=== PATIENT | female | born 2000 | race Caucasian/White ===

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

== ENCOUNTER → 2022-10-03 | Outpatient (CLI) | payer BC ==
[2022-10-03 12:31] LABS: Basophils # (auto) 0 10 ^3/uL (0-0.2); Basophils % (auto) 0.6 % (0.0-2.0); Eosinophils # (auto) 0.1 10 ^3/uL (0-0.8); Eosinophils % (auto) 1.5 % (0.0-7.0); Hematocrit 42.5 % (36.0-46.0); Hemoglobin 14.3 g/dL (12.2-16.2); Mean Corpuscular Hemoglobin 29.4 pg (28.0-32.0); Mean Corpuscular Hgb Conc. 33.8 g/dL (32.0-36.0); Monocytes # (auto) 0.3 10 ^3/uL (0-1.3); Monocytes % (auto) 7.2 % (0.0-12.0); Neutrophils # (auto) 2.3 10 ^3/uL (1.6-8.6); Neutrophils % (auto) 48.7 % (37.0-80.0); Nucleated Red Blood Cells % 0.1 %; Red Blood Cells 4.88 10^6/uL (4.0-5.20); Red Cell Distribution Width 13.5 % (11.8-14.3); White Blood Cell 4.7 10^3/uL (4.4-10.8)
[2022-10-03 13:09] LABS: Potassium 3.2 mmol/L (3.5-5.1)
[2022-10-03 13:20] LABS: Albumin 3.9 g/dL (3.4-5.0); Bilirubin, Total 0.7 mg/dL (0.2-1.0); Calcium 9.1 mg/dL (8.5-10.1); Total Protein 7.5 g/dL (6.4-8.2)
== END | disposition home or self-care (01) ==
LOC: LAB 11:55
PROVIDERS: ATTEND Nurse Practitioner Family
DX: N94.6 Dysmenorrhea, unspecified (principal)
CPT/HCPCS: 36415; 80053; 84439; 84443; 85025

== ENCOUNTER → 2022-10-09 | Outpatient (CLI) | payer BC ==
[2022-10-09 11:25] LABS: Potassium 3.9 mmol/L (3.5-5.1)
[2022-10-09 11:30] LABS: Calcium 9.5 mg/dL (8.5-10.1)
== END | disposition home or self-care (01) ==
LOC: LAB 10:28
PROVIDERS: ATTEND Nurse Practitioner Family
DX: E87.6 Hypokalemia (principal)
CPT/HCPCS: 36415; 80048

== ENCOUNTER → 2024-01-25 | Outpatient (CLI) | payer BC ==
[2024-01-25 08:38] LABS: LDL Cholesterol 72 mg/dL (< 100); Triglycerides 172 mg/dL (< 150)
[2024-01-25 08:40] LABS: Cholesterol 152 mg/dL (< 200); HDL Cholesterol 55 mg/dL (40-59)
== END | disposition home or self-care (01) ==
LOC: LAB 07:13
PROVIDERS: ATTEND Nurse Practitioner Family
DX: E78.5 Hyperlipidemia, unspecified (principal)
CPT/HCPCS: 36415; 80061

== ENCOUNTER → 2024-02-14 | Outpatient (CLI) | payer BC | END | disposition home or self-care (01) | LOC: LAB 02-13 09:29 | PROVIDERS: ATTEND Dermatology | DX: D22.9 Melanocytic nevi, unspecified (principal) ==

== ENCOUNTER 2025-02-09 06:49 | Day surgery (SDC) | payer BC ==
[2025-02-03 10:23] LABS: Hematocrit 43.8 % (36.0-46.0); Hemoglobin 14.8 g/dL (12.2-16.2); Mean Corpuscular Hemoglobin 29.7 pg (28.0-32.0); Mean Corpuscular Volume 88.0 fL (80.0-100.0); Nucleated Red Blood Cells % 0.0 %
[2025-02-03 10:31] LABS: INR 0.97 (0.9-1.15); Partial Thromboplastin Time 28.5 SEC (24.5-34.5); Prothrombin Time 10.3 sec (9.3-11.8)
[2025-02-03 11:04] LABS: Urine Protein, UAD Negative (Negative)
[2025-02-03 11:12] LABS: Alanine Aminotransferase 11 U/L (7-40); Albumin 4.6 g/dL (3.2-4.8); Alkaline Phosphatase 72 U/L (46-116); Anion Gap 12 (5-15); BUN/Creatinine Ratio 11.9 (10.0-20.0); Calcium 9.8 mg/dL (8.7-10.4); Carbon Dioxide 24 mmol/L (20-31); Chloride 104 mmol/L (98-107); Glucose 83 mg/dL (74-106); Potassium 4.2 mmol/L (3.5-5.1); Sodium 140 mmol/L (136-145); Total Protein 7.7 g/dL (5.7-8.2)
[2025-02-03 11:13] LABS: Bilirubin, Total 0.7 mg/dL (0.2-1.0)
[2025-02-03 11:14] LABS: Blood Urea Nitrogen 8 mg/dL (9-23)
[~2025-02-09] VITALS: Ht 157.5 cm; Wt 61.2 kg
[~2025-02-09 06:49] MED LIST: HYDROmorphone HCL 2 MG/ML VL/or syr IV PRN; KETOROLAC TROMETH 30 MG/ML 1ML VIAL IV ONE; METOCLOPRAMIDE HCL 5MG/ml INJ 2ml VIAL IV PRN; MORPHINE SULFATE 4 MG/ML SYR/VIAL IV PRN; MORPHINE SULFATE INJ 2 MG/ml SYRG IV PRN
[2025-02-09] MEDS ORDERED: KETAMINE 50mg/ML 1ml syringe ONE (06:54)
[2025-02-09] MEDS ORDERED: SODIUM CHLORIDE LOCK 10 ML ONE (06:54)
[2025-02-09] MEDS ORDERED: ONDANSETRON HCL 4 MG/2 ML VIAL ONE (06:54)
[2025-02-09] MEDS ORDERED: PROPOFOL 10 MG/ML 20 ML IV ONE (06:54)
[2025-02-09] MEDS ORDERED: LIDOCAINE 1% INJ PF 5ML AMP ONE (06:54)
[2025-02-09] MEDS ORDERED: MIDAZOLAM HCL 2MG/2ML 2ml VIAL (1mg/ml) ONE (06:54)
[2025-02-09] MEDS ORDERED: MEPERIDINE HCL (25 MG/ML) 1ML VIAL ONE (06:54)
[2025-02-09] MEDS ORDERED: fentaNYL CITRATE 100 MCG/2 ML VL ONE (06:54)
[2025-02-09] MEDS ORDERED: ceFAZolin 2 GM/D5W50ml 50 ML IV ONE (07:11)
[2025-02-09] MEDS: LIDOCAINE 1% HCL (LOCAL ANESTH.) INJ 20ML MDV ONE (07:50)
[2025-02-09] MEDS: BUPIVACAINE HCL 0.25% P/F 10 ML VIAL ONE (07:50)
[2025-02-09 08:08] VITALS: TEMP 97.4; O2SAT 98
--- NOTE | 2025-02-09 08:47 | DVHOP2 ---
Operative Report - 2 Report Details Date: 02/09/25 Preop Diagnosis: Left dequervain tendonitis, dorsal wrist mass Postop Diagnosis: Left dequervain tendonitis, dorsal wrist mass Surgeon: Yoshi Valdes MD Investment Underwriter: Paul SMITH Anesthesiologist: MILDRED Anesthesia: General Consent: The patient was informed of the risks and benefits of the procedure. These include but are not limited to complications of anesthesia, postoperative infection, incomplete relief of symptoms, recurrence of symptoms, damage to blood vessels, nerves and tendons, deep venous thrombosis, pulmonary embolism and possible need for repeat surgery in the future. Estimated Blood Loss: 1 cc Name of Procedure Performed 1. Left dequervain tendon release with extensor tendon synovectomy 2. Left dorsal wrist mass excision Procedure Details Procedure Details: INDICATIONS FOR PROCEDURE: The patient presenting with radial-sided wrist pain and functional limitations due to De Quervains tenosynovitis clinically by positive Finkelsteins test and tenderness over the first dorsal compartment. Conservative treatment including splinting, NSAIDs, and corticosteroid injections had failed. Surgical decompression of the first dorsal compartment was therefore indicated and consented. Procedure Detail: Patient was seen in the preoperative area. Consent was signed and then se was taken to the operating room. With the patient under adequate anesthesia, the upper extremity was prepped and draped in a sterile manner. The arm was exsanguinated. The tourniquet was elevated at 250 mm/Hg. A longitudinal 2 cm incision was made over the radial styloid, directly over the first dorsal compartment. Sharp dissection was carried through the subcutaneous tissues, taking care to protect the branches of the superficial radial nerve. The extensor retinaculum over the first dorsal compartment was identified. The compartment was opened longitudinally, releasing the sheath overlying the abductor pollicis longus (APL) and extensor pollicis brevis (EPB) tendons. The tendons were mobilized and examined for fraying or synovial thickening. The release was confirmed with passive motion of the thumb and wrist, ensuring complete decompression. Patient noted to have a 3x1 cm dorsal wrist mass over 2nd and 3rd extensor compartment. Sharp dissection carried down to mass. Noted to come off extensor tendon - this was removed and tendon gently debrided. Hemostasis was achieved with electrocautery. The wound was irrigated, skin was closed with interrupted 3-0 nylon sutures. Condition Good Disposition Home YOSHI VALDES MD Feb 09, 2025 08:47
[2025-02-09 08:58] VITALS: BP 129/84; PULSE 85; RESP 17; O2SAT 96
== END 2025-02-09 09:08 | disposition home or self-care (01) ==
LOC: SUR 06:49
PROVIDERS: ATTEND Orthopaedic Surgery Adult Reconstructive Orthopaedic Surgery
DX: M65.4 Radial styloid tenosynovitis [de Quervain] (principal); M67.432 Ganglion, left wrist; Z79.899 Other long term (current) drug therapy
CPT/HCPCS: 25000; 25111; 36415; 80053; 81001; 81025; 85025; 85610; 85730; 88304; A6450; J0690; J2003; J2175; J2250; J2405; J2704; J3010; J3490